=== PATIENT | male | born 1980 | race Asian ===

== ENCOUNTER 2019-06-18 23:50 | Emergency (ER) | payer BC ==
[~2019-06-18] VITALS: Ht 175.3 cm; Wt 78.0 kg
[2019-06-19] MEDS ORDERED: LIDOCAINE HCL 1% 20ML VIAL (Pyxis) INJ INFIL ONE (05:45)
[2019-06-19] MEDS ORDERED: IBUPROFEN 600MG TABLET PO ONE (05:45)
[2019-06-19] MEDS ORDERED: BACITRACIN 15GM TUBE TOP ONE (09:45)
[2019-06-19] MEDS ORDERED: TETANUS, DIPHTHERIA, PERTUSSIS VAC/PF 0.5ML (>7YR OLD) IM ONE (09:45)
[2019-06-19] MEDS ORDERED: BACITRACIN ZINC OINT UDPKT TOP ONE (10:15)
[2019-06-19 10:24] VITALS: BP 118/70
== END 2019-06-19 10:27 | disposition home or self-care (01) ==
LOC: ER 23:50
DX: S81.011A Laceration without foreign body, right knee, initial encounter (principal); M54.2 Cervicalgia; M25.512 Pain in left shoulder; V49.40XA Driver injured in collision with unspecified motor vehicles in traffic accident, initial encounter; Y93.89 Activity, other specified; Y92.411 Interstate highway as the place of occurrence of the external cause; Z23 Encounter for immunization
CPT/HCPCS: 71045; 73562; 73700; 90471; 90715; 99284; A4217; J3490; Z7610